=== PATIENT | female | born 1990 | race Caucasian/White ===

== ENCOUNTER 2019-10-25 16:59 | Outpatient (CLI) | payer OTHER, SELFPAY | END 2019-10-25 17:00 | disposition home or self-care (01) | LOC: CHSLAB 17:03 | PROVIDERS: PCP Family Medicine; Visit Provider Specialist | DX: D18.01 Hemangioma of skin and subcutaneous tissue (principal); D18.1 Lymphangioma, any site | CPT/HCPCS: 88305 ==

== ENCOUNTER 2019-12-07 06:52 | Outpatient (CLI) | payer OTHER, SELFPAY ==
[2019-12-07 07:17] LABS: Basophils Absolute Auto 0.03 K/mm3 (0.00-0.10); Basophils Percent Auto 0.5 % (0.0-1.0); Eosinophils Absolute Auto 0.07 K/mm3 (0.02-0.50); Eosinophils Percent Auto 1.3 % (1.0-6.0); Hematocrit 40.9 % (35.0-49.0); Hemoglobin 13.7 g/dL (12.0-15.0); Immature Granulocyte Absolute 0.01 K/mm3 (0.00-0.00); Immature Granulocyte Percent A 0.2 % (0.0-0.0); Lymphocytes Percent Auto 34.6 % (18.0-42.0); Mean Corpuscular HGB Conc 33.5 g/dL (32.0-36.0); Mean Corpuscular Hemoglobin 32.1 pg (27.0-31.0); Mean Corpuscular Volume 95.8 fL (78.0-102.0); Mean Platelet Volume 8.9 fl (9.2-11.8); Monocytes Absolute Auto 0.44 K/mm3 (0.10-0.90); Neutrophils Percent Auto 55.4 % (50.0-70.0); Platelet Count Result 374 K/mm3 (150-420); Red Blood Count 4.27 M/mm3 (4.20-5.40); Red Cell Distribution Width 12.5 % (11.6-14.4); White Blood Count 5.5 K/mm3 (4.8-10.8)
[2019-12-07 08:08] LABS: Cholesterol 142 mg/dL (0-200); Free T4 Free Thyroxine 0.96 ng/dL (0.76-1.46); HDL Direct 53 mg/dL (40-60); LDL Cholesterol Calculated 74 mg/dL (<130); Thyroid Stimulating Hormone 2.49 uIU/mL (0.36-3.74); Triglycerides 73 mg/dL (0-150)
[2019-12-10 21:35] LABS: Vitamin D 1,25 (OH)2 Total 50 pg/mL (18-72); Vitamin D2 1,25 (OH)2 <8 pg/mL; Vitamin D3 1,25 (OH)2 50 pg/mL
[2019-12-13 10:30] LABS: Vitamin D 25 Hydroxy 37 ng/mL (30-100)
== END 2019-12-07 06:53 | disposition home or self-care (01) ==
PROVIDERS: PCP Family Medicine; Visit Provider Nurse Practitioner Psychiatric/Mental Health
DX: E55.9 Vitamin D deficiency, unspecified (principal); E03.9 Hypothyroidism, unspecified; D69.6 Thrombocytopenia, unspecified
CPT/HCPCS: 36415; 80061; 82306; 82652; 84439; 84443; 85025

== ENCOUNTER 2020-03-12 09:48 | Emergency (ER) | payer OTHER, SELFPAY ==
[2020-03-12 09:55] VITALS: BP 122/74; PULSE 100; RESP 16; TEMP 37.3; O2SAT 97
--- NOTE | 2020-03-12 10:16 | ED.URI ---
HPI - URI/Sore Throat General Chief Complaint: Upper Respiratory Infection Stated Complaint: Sore throat fever Time Seen by Provider: 03/12/20 10:17 History of Present Illness HPI Narrative: 22-year-old female patient is here with chief complaints of sore throat and fever that started 2 days ago. The patient states that she attended a bachelor green party when the written other people and nobody was wearing a mask however she states maintain a social distance but also that they were drinking. She is not aware of anyone else being sick or anyone else having had a contact. Patient does complain of feeling weak and states has not been able to eat or drink anything. She denies any unusual cough. She denies any abdominal pain. She denies any nausea or vomiting or any urinary symptoms. Patient states that she has not lost hers sense of taste or smell. She denies any cough and also any shortness of breath. Patient states that she is generally in good health. Related Data Home Medications Medication Instructions Recorded Confirmed levothyroxine 50 mcg PO DAILY 03/12/20 03/12/20 Allergies Allergy/AdvReac Type Severity Reaction Status Date / Time morphine Allergy Intermediate HIVES,ITCHI Verified 07/30/18 14:35 NG Review of Systems Review of Systems: All systems reviewed & are unremarkable except as noted in HPI and below Constitutional: Constitutional: Reports no additional constitutional complaints, Denies chills, Reports fatigue, Reports fever(s) and Reports weakness Eyes: Eyes: Reports no additional eye complaints ENT: Reports system reviewed and no additional complaints, except as documented, Denies dysphagia and Denies nasal congestion Cardiovascular: Cardiovascular: Reports no additional cardiovascular complaints and Denies chest pain Respiratory: Respiratory: Reports no additional respiratory complaints, Denies cough, Denies dyspnea and Denies wheezing Gastrointestinal: Gastrointestinal: Reports no additional gastrointestinal complaints, Denies abdominal pain, Denies diarrhea, Denies nausea and Denies vomiting Musculoskeletal: Musculoskeletal: Reports no additional musculoskeletal complaints Integumentary/Breasts: Skin/Breast: Reports system reviewed and no additional complaints, except as docu Neurologic: Reports system reviewed and no additional complaints, except as documented Psychiatric: Psychiatric: Reports no additional psychiatric complaints [facility] Family History Family History Father Diabetes mellitus Family history of hypercholesterolemia Hypertension Sibling Family history of malignant melanoma Social History Social History Smoking status: Never smoker Alcohol intake: current Exam Const: General: no acute distress and alert Orientation/consciousness: patient oriented x3 HENMT: Head: normal to inspection Ears: external ears normal General nose exam: Normal nares present Face and sinus: sinuses nontender Mouth: Yes Normal oral and palatal mucosa present Throat: posterior oropharynx abnormal Other: Patient has erythema of the posterior pharyngeal wall with the slight enlargement of the tonsils with exudates. No bleeding . Uvula is midline Chest: Chest palpation & inspection: normal inspection of the chest Resp: Effort & Inspection: normal respiratory effort Auscultation: clear to auscultation bilaterally Cardio: Rate: regular rate GI: GI Palp: Yes Soft to palpation, No Tenderness to palpation present (GI), No Guarding due to palpation present (GI), No Rigid due to palpation, No Hernia present and No Rebound tenderness present Auscultation: normal bowel sounds : General: Yes no CVA tenderness Back/Spine/Pelvis: Back: No CVA tenderness Cervical Spine: No collar present Neuro: General: patient oriented x3, moves all extremities, no meningeal signs, no focal motor deficits and CN's II-XI intact bilaterally Gait exam
[2020-03-12] MEDS: LACTATED RINGERS 1,000 ML 999 ML IV CONT (11:18)
[2020-03-12] MEDS: KETOROLAC 30 MG/ML VIAL (*BKC) IV PUSH (11:19)
[2020-03-12] MEDS: DEXAMETHASONE SOD PHOS INJ 4 MG/ML VIAL 10 MG IV PUSH (11:20)
[2020-03-12 11:24] LABS: Influenza Control Valid (Valid)
[2020-03-12 12:41] LABS: Basophils Absolute Auto 0.02 K/mm3 (0.00-0.10); Basophils Percent Auto 0.2 % (0.0-1.0); Hematocrit 36.3 % (35.0-49.0); Hemoglobin 12.2 g/dL (12.0-15.0); Immature Granulocyte Absolute 0.12 K/mm3 (0.00-0.00); Lymphocytes Absolute Auto 0.79 K/mm3 (1.10-4.50); Lymphocytes Percent Auto 6.9 % (18.0-42.0); Mean Corpuscular HGB Conc 33.6 g/dL (32.0-36.0); Mean Corpuscular Hemoglobin 32.6 pg (27.0-31.0); Mean Corpuscular Volume 97.1 fL (78.0-102.0); Mean Platelet Volume 8.7 fl (9.2-11.8); Monocytes Absolute Auto 0.69 K/mm3 (0.10-0.90); Neutrophils Absolute Auto 9.9 K/mm3 (1.7-7.2); Neutrophils Percent Auto 85.9 % (50.0-70.0); Platelet Count Result 239 K/mm3 (150-420); Red Blood Count 3.74 M/mm3 (4.20-5.40); White Blood Count 11.5 K/mm3 (4.8-10.8)
[2020-03-12 12:59] LABS: Lactic Acid 0.7 mmol/L (0.4-2.0)
[2020-03-12 13:03] LABS: Anion Gap 10 mmol/L (8-16); Blood Urea Nitrogen 10 mg/dL (7-18); Calcium 8.6 mg/dL (8.5-10.1); Carbon Dioxide 25 mmol/L (21-32); Chloride 103 mmol/L (98-108); Estimated CRCL calculation 98 ml/min; Estimated Glomerular Filt Rate > 60; Glucose 99 mg/dL (70-99); Osmolality Calculated 285 mOsm/kg (285-295); Potassium 3.7 mmol/L (3.5-5.1); Sodium 138 mmol/L (136-145)
[2020-03-12 14:06] LABS: Monoscreen Negative (Negative); Negative Monotest Control Negative (Negative); Positive Monotest Control Positive (Positive)
[2020-03-12] MEDS: AMOXICILLIN/CLAVULANATE K 875-125 MG TAB 1 TABLET PO (14:35)
[2020-03-12 14:44] VITALS: BP 125/74; PULSE 83; RESP 16; O2SAT 98
[2020-03-12 22:47] LABS: SARS-CoV-2 RNA PCR Negative
== END 2020-03-12 14:43 | disposition home or self-care (01) ==
PROVIDERS: Emergency Provider Emergency Medicine; PCP Family Medicine
DX: J02.9 Acute pharyngitis, unspecified (principal)
CPT/HCPCS: 36415; 80048; 83605; 85025; 86308; 87040; 87081; 87635; 87804; 87880; 96361; 96374; 96375; 99282; 99284; A9270; C9803; J1100; J1885; J7120; U0003

== ENCOUNTER 2020-12-06 08:07 | Outpatient (CLI) | payer OTHER, SELFPAY ==
[2020-12-06 08:21] LABS: Basophils Absolute Auto 0.03 K/mm3 (0.00-0.10); Basophils Percent Auto 0.6 % (0.0-1.0); Eosinophils Absolute Auto 0.05 K/mm3 (0.02-0.50); Hematocrit 36.3 % (35.0-49.0); Hemoglobin 12.2 g/dL (12.0-15.0); Immature Granulocyte Absolute 0.01 K/mm3 (0.00-0.00); Immature Granulocyte Percent A 0.2 % (0.0-0.0); Lymphocytes Absolute Auto 1.73 K/mm3 (1.10-4.50); Lymphocytes Percent Auto 34.2 % (18.0-42.0); Mean Corpuscular HGB Conc 33.6 g/dL (32.0-36.0); Mean Corpuscular Hemoglobin 31.2 pg (27.0-31.0); Mean Corpuscular Volume 92.8 fL (78.0-102.0); Mean Platelet Volume 8.8 fl (9.2-11.8); Monocytes Absolute Auto 0.44 K/mm3 (0.10-0.90); Monocytes Percent Auto 8.7 % (2.0-11.0); Neutrophils Absolute Auto 2.8 K/mm3 (1.7-7.2); Neutrophils Percent Auto 55.3 % (50.0-70.0); Platelet Count Result 337 K/mm3 (150-420); Red Blood Count 3.91 M/mm3 (4.20-5.40); Red Cell Distribution Width 12.4 % (11.6-14.4); White Blood Count 5.1 K/mm3 (4.8-10.8)
[2020-12-06 09:47] LABS: Alanine Aminotransferase 25 U/L (14-59); Albumin Level 3.8 g/dL (3.4-5.0); Alkaline Phosphatase 59 U/L (46-116); Anion Gap 8 mmol/L (8-16); Aspartate Amino Transferase 13 U/L (15-37); Bilirubin,Total 0.4 mg/dL (0.00-1.00); Blood Urea Nitrogen 14 mg/dL (7-18); Carbon Dioxide 26 mmol/L (21-32); Chloride 103 mmol/L (98-108); Cholesterol 128 mg/dL (0-200); Estimated Glomerular Filt Rate > 60; Free T3 2.53 pg/mL (2.18-3.98); Glucose 88 mg/dL (70-99); HDL Direct 58 mg/dL (40-60); LDL Cholesterol Calculated 60 mg/dL (<130); Osmolality Calculated 283 mOsm/kg (285-295); Potassium 4.5 mmol/L (3.5-5.1); Sodium 137 mmol/L (136-145); Thyroid Stimulating Hormone 1.98 uIU/mL (0.36-3.74); Total Protein 7.3 g/dL (6.4-8.2); Triglycerides 51 mg/dL (0-150); Vitamin B12 438 pg/mL (193-986)
[2020-12-08 20:01] LABS: T4 Thyroxine 6.5 mcg/dL (5.1-11.9)
[2020-12-09 03:48] LABS: Thyroid Peroxidase Antibodies 3 IU/mL (<9)
[2020-12-09 16:25] LABS: Vitamin D 25 Hydroxy 30 ng/mL (30-100)
[2020-12-11 12:07] LABS: Vitamin D 1,25 (OH)2 Total 55 pg/mL (18-72); Vitamin D2 1,25 (OH)2 9 pg/mL; Vitamin D3 1,25 (OH)2 46 pg/mL
== END 2020-12-06 08:08 | disposition home or self-care (01) ==
PROVIDERS: PCP Family Medicine; Visit Provider Nurse Practitioner Psychiatric/Mental Health
DX: R53.83 Other fatigue (principal); R79.9 Abnormal finding of blood chemistry, unspecified; R63.5 Abnormal weight gain
CPT/HCPCS: 36415; 80053; 80061; 82306; 82607; 82652; 84436; 84443; 84481; 85025; 86376

== ENCOUNTER 2021-01-24 13:27 | Outpatient (CLI) | payer OTHER, SELFPAY ==
--- NOTE | ~2021-01-24 | XR_ITS ---
XR tibia fibula LT 2V DATE: 01/24/2021 13:47 INDICATION: Leg pain for 3 weeks TECHNIQUE: AP and lateral views COMPARISON: 10/03/2009 left knee FINDINGS: There is suggestion of partially imaged suprapatellar knee joint effusion on the lateral vi ew. No fracture or dislocation, periosteal reaction or bone destruction of the tibia or fibula is detecte d. Normal alignment at the knee and ankle joints. IMPRESSION: Suggested suprapatellar knee joint effusion Reviewed, dictated and finalized at location A.
== END 2021-01-24 13:28 | disposition home or self-care (01) ==
LOC: CHSIMG 13:30
PROVIDERS: PCP Family Medicine; Visit Provider Nurse Practitioner Psychiatric/Mental Health
DX: M79.662 Pain in left lower leg (principal)
CPT/HCPCS: 73590

== ENCOUNTER 2021-10-01 14:12 | Outpatient (CLI) | payer OTHER, SELFPAY ==
--- NOTE | ~2021-10-01 | XR_ITS ---
XR heel RT min 2V DATE: 10/01/2021 14:49 INDICATION: Plantar heel pain TECHNIQUE: Axial and lateral views COMPARISON: None FINDINGS: Prominent plantar calcaneal enthesopathy, increased in prominence substantially since 07/01. No associated periostitis or erosive change. No fracture or dislocation or bone destruction of the calcaneus. IMPRESSION: Prominent plantar calcaneal enthesopathy Reviewed, dictated and finalized at location A.
== END 2021-10-01 14:13 | disposition home or self-care (01) ==
LOC: CHSIMG 14:13
PROVIDERS: PCP Nurse Practitioner Psychiatric/Mental Health; Visit Provider Nurse Practitioner Psychiatric/Mental Health
DX: M79.671 Pain in right foot (principal)
CPT/HCPCS: 73650

== ENCOUNTER 2022-05-08 06:55 | Outpatient (CLI) | payer OTHER, SELFPAY ==
--- NOTE | ~2022-05-08 | MR_ITS ---
EXAMINATION: MR foot RT wo con DATE: 05/08/2022 08:00 INDICATION: Arthralgias in the right mid and forefoot TECHNIQUE: Magnetic resonance imaging (MRI) of the right fore/mid foot was performed without intraven ous contrast. Sequences included sagittal T1-weighted FSE, sagittal fluid sensitive FSE STIR, coronal PD-weighted FS FSE, coronal T1-weighted FSE, axial PD-weighted FS FSE, and axial PD-weighted FSE. 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 Bone alignment is normal. No rmal bone marrow signal throughout with no reactive edema, acute fracture or pathologic marrow replac ing process. Joint spaces are normal. No erosions. No periostitis. There is a 1.4 x 2.0 x 0.5 cm peter ral masses intermediate signal intensity tissue partially replacing the plantar fat pad underlying th e plantar/lateral aspect of the head of the fifth metatarsal with typical location and appearance for adventitial bursitis. The Lisfranc ligament complex and the collateral ligament complex at the metat arsophalangeal and interphalangeal joints are normal. The flexor and extensor tendons of the foot are normal. The plantar plate complex at the base of the proximal phalanges are normal. Intrinsic muscul ature of the foot is normal. Physiologic amount of fluid in the joint spaces. No other abnormal fluid collections identified. IMPRESSION: 1. Adventitial bursitis plantar to the head of the fifth metatarsal. 2. 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 Reviewed, dictated and finalized at location A.
== END 2022-05-08 06:56 | disposition home or self-care (01) ==
LOC: CHSIMG 06:57
PROVIDERS: PCP Family Medicine; Visit Provider Podiatrist Foot & Ankle Surgery
DX: M25.571 Pain in right ankle and joints of right foot (principal); M76.71 Peroneal tendinitis, right leg
CPT/HCPCS: 73718

== ENCOUNTER 2022-07-04 07:08 | Outpatient (CLI) | payer OTHER, SELFPAY ==
[2022-07-04 07:33] LABS: Hemoglobin A1C 5.2 % (<5.7)
[2022-07-04 08:25] LABS: Alanine Aminotransferase 26 U/L (14-59); Albumin Level 3.8 g/dL (3.4-5.0); Alkaline Phosphatase 63 U/L (46-116); Anion Gap 8 mmol/L (8-16); Aspartate Amino Transferase 15 U/L (15-37); Bilirubin,Total 0.5 mg/dL (0.00-1.00); Blood Urea Nitrogen 21 mg/dL (7-18); Carbon Dioxide 25 mmol/L (21-32); Chloride 104 mmol/L (98-108); Estimated Glomerular Filt Rate > 60; Glucose 90 mg/dL (70-99); Osmolality Calculated 287 mOsm/kg (285-295); Potassium 4.2 mmol/L (3.5-5.1); Sodium 137 mmol/L (136-145); Thyroid Stimulating Hormone 3.24 uIU/mL (0.36-3.74); Total Protein 7.5 g/dL (6.4-8.2)
[2022-07-08 13:55] LABS: Insulin Level Total 12.2 uIU/mL (<=19.6)
[2022-07-08 21:04] LABS: T4 Thyroxine 7.3 mcg/dL (5.9-10.3)
[2022-07-09 07:51] LABS: FSH 5.6 mIU/mL (***); LH 9.1 mIU/mL (***); Progesterone 0.3 ng/mL (***); Prolactin 11.3 ng/mL (***)
[2022-07-09 10:52] LABS: Testosterone Total 44 ng/dL (2-45)
== END 2022-07-04 07:09 | disposition home or self-care (01) ==
LOC: CHSLAB 07:09
PROVIDERS: Visit Provider Obstetrics & Gynecology
DX: N92.6 Irregular menstruation, unspecified (principal); N97.0 Female infertility associated with anovulation
CPT/HCPCS: 36415; 80053; 83001; 83002; 83036; 83498; 83525; 84144; 84146; 84403; 84436; 84443

== ENCOUNTER 2022-09-11 06:42 | Outpatient (CLI) | payer OTHER, SELFPAY ==
--- NOTE | ~2022-09-11 | XR_ITS ---
EXAMINATION: XR hysterosalpingogram DATE: 09/11/2022 08:37 INDICATION: Irregular menstruation TECHNIQUE: Multiple fluoroscopic images were obtained during contrast infusion into the endometrial c anal of the uterus by the primary physician. Fluoroscopy exposure time was 0.3 minutes. A total of 3 fluoroscopic images were recorded. Total DAP was 4.524 Gycm^2 FINDINGS: The uterine cavity demonstrates normal morphology. The fallopian tubes are normal in caliber and pat ent bilaterally. There is normal spillage of contrast into the peritoneum on both sides. IMPRESSION: 1. Normal hysterosalpingogram. Reviewed, dictated and finalized at location A. 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
[2022-09-11 07:36] LABS: Beta HCG Quantitative < 2.39 mIU/ML
--- NOTE | 2022-09-16 17:48 | PM.OP ---
Procedure Note - Brief Procedure Note - Brief Date of procedure: 09/16/22 Pre-op diagnosis: infirtility Same Post-op diagnosis: Same Procedure performed: technical hysterosalpingogram component Description of procedure: after informed consent was obtained patient was placed on the [facility] procedure table. She was placed in modified lithotomy position. The speculum was inserted the cervix was cleaned with Betadine. The cannula and introducer was placed at the cervix the cannula was inserted into the lower uterine cavity and the balloon was secured. once radiology was present and fluoro was initiated then the dye was inserted through the tubing and there was noted to be bilateral fill and spill. A total of about 40 cc of dye was used. The tubing was removed after the balloon was deflated the speculum was removed. The patient tolerated the procedure well. Anesthesia: none Surgeon: Vlad Bui MD Drains: No Packing: No Pathology: None sent Complications: No immediate complications Condition: Stable Disposition: Other ( Home) Findings: bilateral fill and Spill of fallopian tubes.
== END 2022-09-11 06:43 | disposition home or self-care (01) ==
LOC: ANHIMG 06:44
PROVIDERS: Visit Provider Obstetrics & Gynecology
DX: N92.6 Irregular menstruation, unspecified (principal)
CPT/HCPCS: 36415; 58340; 74740; 84702; Q9966

== ENCOUNTER → 2022-10-21 08:06 | Outpatient (CLI) | payer OTHER, SELFPAY ==
--- NOTE | ~2022-10-21 | US_ITS ---
EXAMINATION: US OB <=14 wk fetus w TV DATE: 10/21/2022 08:47 INDICATION: First trimester dating TECHNIQUE: Real-time pelvic transabdominal and transvaginal ultrasound was performed. COMPARISON: None. FINDINGS: The uterus measures 9.1 x 3.9 x 5.2 cm. There is an intrauterine gestational sac. The pole is not identified. The mean sac diameter measures 6 mm, which correlates with an estimated gest ational age of 5 weeks and 2 day(s) (+/-) 3 day(s). The right ovary measures 3.5 x 2.3 x 1.9 cm. The left ovary measures 2.8 x 1.7 x 1.6 cm. There is nor mal vascular flow in the ovaries. There is no free fluid in the pelvis. IMPRESSION: 1. Intrauterine gestational sac without visible pole, likely due to early . Estimated gestational age of 5 weeks and 2 day(s) (+/-) 3 day(s) and an estimated delivery date of 06/21/2023 ba sed on mean sac diameter. Reviewed, dictated and finalized at location L. IMPRESSION: 1. Intrauterine gestational sac without visible pole, likely due to early . Estimated gestational age of 5 weeks and 2 day(s) (+/-) 3 day(s) an d an estimated delivery date of 06/21/2023 based on mean sac diameter.
== END ==
PROVIDERS: PCP Registered Nurse; Visit Provider Registered Nurse
DX: Z34.90 Encounter for supervision of normal pregnancy, unspecified, unspecified trimester (principal)
CPT/HCPCS: 76801; 76817

== ENCOUNTER 2022-10-31 07:21 | Outpatient (CLI) | payer OTHER, SELFPAY ==
--- NOTE | ~2022-10-31 | US_ITS ---
EXAMINATION: US OB <=14 wk fetus w TV DATE: 10/31/2022 08:10 INDICATION: Evaluate for intrauterine TECHNIQUE: Real-time transabdominal and transvaginal obstetric ultrasound. FINDINGS: Comparison to 10/21/2022 The uterus measures 9.9 x 4 x 5.3 cm. There is an intrauterine gestational sac, with pole ident ified. The crown rump length measures 0.35 cm, which correlates with a estimated gestational age of 6 weeks 0 days. heart tones are identified measuring 06/10/2023. There is a small subchorioni c hemorrhage measuring 4 mm. The ovaries are within normal limits. IMPRESSION: 1. SL IUP with an EGA of 6 weeks, 0 days (EDC by current ultrasound of 06/26/2023). 2: Small subchorionic hemorrhage. Reviewed, dictated and finalized at location B. IMPRESSION: 1. SL IUP with an EGA of 6 weeks, 0 days (EDC by current ultrasound of 06/26/20). 2: Small subchorionic hemorrhage.
== END 2022-10-31 07:22 | disposition home or self-care (01) ==
PROVIDERS: Visit Provider Registered Nurse
DX: O28.3 Abnormal ultrasonic finding on antenatal screening of mother (principal); Z3A.01 Less than 8 weeks gestation of pregnancy
CPT/HCPCS: 76801; 76817

== ENCOUNTER 2022-11-19 11:02 | Outpatient (CLI) | payer OTHER, SELFPAY ==
--- NOTE | ~2022-11-19 | US_ITS ---
EXAMINATION: US OB <=14 wk fetus w TV DATE: 11/19/2022 11:57 INDICATION: Hemorrhage in early , unspecified. TECHNIQUE: Real-time transabdominal and transvaginal pelvic ultrasound was performed. COMPARISON: Ultrasound 10/31/2022, 10/21/2022 FINDINGS: TRANSABDOMINAL ULTRASOUND: The uterus measures 11.0 x 7.1 x 5.2 cm. TRANSVAGINAL ULTRASOUND: There is an intrauterine gestational sac. A yolk sac is identified. The fet al crown rump length measures 2.5 cm, which correlates with an estimated gestational age of 9 weeks a nd 2 day(s) (+/-) 6 day(s). heart motion is identified measuring 173 beats per minute (bpm) by M-mode Doppler. There is a 3.3 cm intramural fibroid. There is a 9 x 10 x 6 mm subchorionic hematoma. The right ovary measures 3.6 x 2.6 x 3.5 cm. The left ovary measures 3.1 x 2.2 x 2.0 cm. There is no free fluid in the pelvis. IMPRESSION: 1. Single living intrauterine gestation with estimated date of delivery of 06/26/2023 based on the ul trasound from 10/31/2022. 2. Small subchorionic hematoma. 3. Uterine fibroid. Reviewed, dictated and finalized at location A. IMPRESSION: 1. Single living intrauterine gestation with estimated date of delivery of 06/26/2023 based on the ultrasound from 10/31/2022. 2. Small subchorionic hematoma. 3. Uterine fibroid.
== END 2022-11-19 11:03 | disposition home or self-care (01) ==
PROVIDERS: PCP Family Medicine; Visit Provider Obstetrics & Gynecology
DX: O20.9 Hemorrhage in early pregnancy, unspecified (principal); O36.8911 Maternal care for other specified fetal problems, first trimester, fetus 1; D25.9 Leiomyoma of uterus, unspecified
CPT/HCPCS: 76801; 76817

== ENCOUNTER 2022-12-09 07:37 | Outpatient (CLI) | payer OTHER, SELFPAY ==
[2022-12-09 08:03] LABS: Appearance Urine Clear (Clear); Basophils Absolute Auto 0.03 K/mm3 (0.00-0.10); Basophils Percent Auto 0.4 % (0.0-1.0); Bilirubin Urine Negative (Negative); Blood Urine Negative (Negative); Color Urine Light Yellow (Yellow); Eosinophils Absolute Auto 0.08 K/mm3 (0.02-0.50); Eosinophils Percent Auto 1.1 % (1.0-6.0); Glucose Urine UA Negative (Negative); Hematocrit 38.7 % (35.0-49.0); Immature Granulocyte Absolute 0.03 K/mm3 (0.00-0.00); Immature Granulocyte Percent A 0.4 % (0.0-0.0); Ketones Urine Negative (Negative); Leukocyte Esterase Ur Trace (Negative); Lymphocytes Percent Auto 23.3 % (18.0-42.0); Mean Corpuscular HGB Conc 33.6 g/dL (32.0-36.0); Mean Corpuscular Hemoglobin 30.5 pg (27.0-31.0); Mean Corpuscular Volume 90.8 fL (78.0-102.0); Mean Platelet Volume 8.7 fl (9.2-11.8); Monocytes Absolute Auto 0.53 K/mm3 (0.10-0.90); Monocytes Percent Auto 7.3 % (2.0-11.0); Neutrophils Absolute Auto 4.9 K/mm3 (1.7-7.2); Neutrophils Percent Auto 67.5 % (50.0-70.0); Nitrate Urine Negative (Negative); Platelet Count Result 334 K/mm3 (150-420); Protein Urine Negative (Negative); Red Blood Count 4.26 M/mm3 (4.20-5.40); Red Cell Distribution Width 13.2 % (11.6-14.4); Urobilinogen Urine 0.2 mg/dL (0.2-1.0); White Blood Count 7.3 K/mm3 (4.8-10.8); pH Urine 7.5 (5.0-8.0)
[2022-12-09 08:10] LABS: Add Urine Microscopic? YES; Bacteria Urine Trace /hpf; RBC Urine None seen /hpf (0-2); Squamous Epithelial Cell Urine Occasional /hpf (Few); WBC Urine 0-3 /hpf (0-3)
[2022-12-09 08:30] LABS: HIV 1 P24 AG Negative (Negative); HIV 1/2 AB Negative (Negative)
[2022-12-13 11:02] LABS: Rubella IgG Antibody 1.24 Index
[2022-12-13 15:51] LABS: RPR Screen Non-Reactive (Non-Reactive)
[2022-12-15 00:07] LABS: Hepatitis B Surface Antigen Nonreactive (Nonreactive); Hepatitis C Signal to Cutoff 0.02 ratio (<1.00); Hepatitis C Virus Antibody Nonreactive (Nonreactive)
[2022-12-15 16:57] LABS: Vitamin D 25 Hydroxy 31 ng/mL (30-100)
[2022-12-16 16:36] LABS: Hematocrit 41.5 % (35.0-45.0); Hemoglobin 13.4 g/dL (11.7-15.5); MCH 30.6 pg (27.0-33.0); MCV 94.7 fL (80.0-100.0); Red Blood Cell Count 4.38 Mill/uL (3.80-5.10)
[2022-12-21 23:33] LABS: CF Result NEGATIVE (NEGATIVE); Ethnicity NG
== END 2022-12-09 07:38 | disposition home or self-care (01) ==
LOC: CHSLAB 07:39
PROVIDERS: PCP Family Medicine; Visit Provider Obstetrics & Gynecology
DX: Z34.90 Encounter for supervision of normal pregnancy, unspecified, unspecified trimester (principal)
CPT/HCPCS: 36415; 81001; 81220; 81243; 82306; 83021; 84443; 85025; 86592; 86703; 86762; 86787; 86803; 86850; 86900; 86901; 87086; 87340

== ENCOUNTER 2023-04-07 10:50 | Outpatient (CLI) | payer OTHER, SELFPAY ==
[2023-04-07 12:02] LABS: Basophils Absolute Auto 0.04 K/mm3 (0.00-0.10); Basophils Percent Auto 0.4 % (0.0-1.0); Eosinophils Absolute Auto 0.35 K/mm3 (0.02-0.50); Eosinophils Percent Auto 3.2 % (1.0-6.0); Hematocrit 32.8 % (35.0-49.0); Hemoglobin 11.1 g/dL (12.0-15.0); Immature Granulocyte Absolute 0.07 K/mm3 (0.00-0.00); Immature Granulocyte Percent A 0.6 % (0.0-0.0); Lymphocytes Absolute Auto 1.71 K/mm3 (1.10-4.50); Lymphocytes Percent Auto 15.9 % (18.0-42.0); Mean Corpuscular HGB Conc 33.8 g/dL (32.0-36.0); Mean Corpuscular Hemoglobin 32.5 pg (27.0-31.0); Mean Corpuscular Volume 95.9 fL (78.0-102.0); Mean Platelet Volume 9.2 fl (9.2-11.8); Monocytes Absolute Auto 0.72 K/mm3 (0.10-0.90); Monocytes Percent Auto 6.7 % (2.0-11.0); Neutrophils Absolute Auto 7.9 K/mm3 (1.7-7.2); Neutrophils Percent Auto 73.2 % (50.0-70.0); Platelet Count Result 283 K/mm3 (150-420); Red Blood Count 3.42 M/mm3 (4.20-5.40); Red Cell Distribution Width 13.3 % (11.6-14.4); White Blood Count 10.8 K/mm3 (4.8-10.8)
[2023-04-07 13:05] LABS: Glucose 1 Hour PP 50gm Dose 106 mg/dL (70-130)
== END 2023-04-07 10:51 | disposition home or self-care (01) ==
LOC: CHSLAB 10:52
PROVIDERS: PCP Family Medicine; Visit Provider Registered Nurse
DX: Z34.90 Encounter for supervision of normal pregnancy, unspecified, unspecified trimester (principal)
CPT/HCPCS: 36415; 82947; 85025

== ENCOUNTER 2023-05-04 14:24 | Outpatient (CLI) | payer OTHER, SELFPAY ==
[2023-05-04 14:36] LABS: Basophils Absolute Auto 0.04 K/mm3 (0.00-0.10); Basophils Percent Auto 0.4 % (0.0-1.0); Eosinophils Absolute Auto 0.16 K/mm3 (0.02-0.50); Eosinophils Percent Auto 1.7 % (1.0-6.0); Hematocrit 31.8 % (35.0-49.0); Hemoglobin 10.7 g/dL (12.0-15.0); Immature Granulocyte Absolute 0.08 K/mm3 (0.00-0.00); Immature Granulocyte Percent A 0.8 % (0.0-0.0); Lymphocytes Absolute Auto 1.68 K/mm3 (1.10-4.50); Lymphocytes Percent Auto 17.6 % (18.0-42.0); Mean Corpuscular HGB Conc 33.6 g/dL (32.0-36.0); Mean Corpuscular Hemoglobin 31.9 pg (27.0-31.0); Mean Corpuscular Volume 94.9 fL (78.0-102.0); Monocytes Absolute Auto 0.91 K/mm3 (0.10-0.90); Monocytes Percent Auto 9.5 % (2.0-11.0); Neutrophils Absolute Auto 6.7 K/mm3 (1.7-7.2); Platelet Count Result 264 K/mm3 (150-420); Red Blood Count 3.35 M/mm3 (4.20-5.40); Red Cell Distribution Width 13.4 % (11.6-14.4); White Blood Count 9.5 K/mm3 (4.8-10.8)
[2023-05-04 15:26] LABS: HIV 1 P24 AG Negative (Negative); HIV 1/2 AB Negative (Negative)
[2023-05-06 14:31] LABS: RPR Screen Non-Reactive (Non-Reactive)
== END 2023-05-04 14:25 | disposition home or self-care (01) ==
LOC: CHSLAB 14:26
PROVIDERS: PCP Family Medicine; Visit Provider Obstetrics & Gynecology
DX: Z34.93 Encounter for supervision of normal pregnancy, unspecified, third trimester (principal)
CPT/HCPCS: 36415; 85025; 86592; 87806

== ENCOUNTER 2023-06-19 13:27 | Outpatient (RCR) | payer OTHER, SELFPAY ==
[2023-05-01 16:03] VITALS: BP 126/75; PULSE 87
[2023-05-08 16:00] VITALS: BP 126/75; PULSE 87
[2023-05-15 16:16] VITALS: BP 129/76; PULSE 85
[2023-05-22 15:00] VITALS: BP 127/75; PULSE 89
[2023-05-22 15:15] VITALS: BP 123/75; PULSE 88
[2023-05-22 15:30] VITALS: BP 117/75; PULSE 93
[2023-05-22 16:47] VITALS: BP 117/75; PULSE 86
[2023-05-29 16:47] VITALS: BP 133/84; PULSE 75
[2023-06-03 07:54] VITALS: BP 127/73; PULSE 96
[2023-06-05 15:19] VITALS: BP 123/71; PULSE 92
[2023-06-08 16:27] VITALS: BP 117/71; PULSE 92
[2023-06-12 15:45] VITALS: BP 135/85; PULSE 89
[2023-06-17 17:43] VITALS: BP 132/77; PULSE 85
--- NOTE | ~2023-06-19 | US_ITS ---
EXAMINATION: US OB limited DATE: 05/29/2023 16:24 INDICATION: Amniotic fluid index. Third trimester. TECHNIQUE: Real-time ultrasound of the pelvis was performed. COMPARISON: Ultrasound 05/22/2023 FINDINGS: There is a single fetus in vertex presentation. The placenta is fundal. heart rate is 127 beat s per minute (bpm). The amniotic fluid index is 10.5 cm, which is normal. IMPRESSION: 1. Single living fetus in vertex presentation. 2. Normal amniotic fluid index. Reviewed, dictated and finalized at location E. SERVER
--- NOTE | ~2023-06-19 | US_ITS ---
EXAMINATION: US OB BPP wo non-stress DATE: 06/08/2023 16:32 INDICATION: Large for gestational age during third trimester TECHNIQUE: Real-time pelvic ultrasound was performed. The interpreting radiologist was not present fo r the study. COMPARISON: 06/03/2023 FINDINGS: There is a single living fetus in vertex presentation. The placenta is anterior fundal. heart rate is 140 beats per minute (bpm). Amniotic fluid volume is subjectively normal. Biophysical profile performed by the technologist: breathing (30 sec sustained breathing in 30 minutes): 2 out of 2 movement (3 gross body movements in 30 minutes): 2 out of 2 tone (one episode of boqytpj-mtilbzpsa-lidodhy limb movement): 2 out of 2 Amniotic fluid pocket (2 cm): 2 out of 2 Total score: 8 out of 8 IMPRESSION: 1. Single living fetus in vertex presentation with heart rate of 140 bpm. 2. Biophysical profile 8 out of 8. Reviewed, dictated and finalized at location A.
--- NOTE | ~2023-06-19 | US_ITS ---
EXAMINATION: US OB limited DATE: 05/15/2023 15:46 INDICATION: Large for gestational age during third trimester . Assess amniotic fluid index TECHNIQUE: Real-time ultrasound of the pelvis was performed. The interpreting radiologist was not pre sent for the study. COMPARISON: None. FINDINGS: There is a single living fetus in vertex presentation. The placenta is fundal. heart rate is 1 44 beats per minute (bpm). The amniotic fluid index is 11.4 cm, which is normal (5th%-95%: 8.1-44.8 c m at 34 weeks estimated gestational age). IMPRESSION: 1. Single living fetus in vertex presentation with heart rate of 144 bpm. 2. Normal amniotic fluid index of 11.4 cm. Reviewed, dictated and finalized at location A. IMPRESSION: 1. Single living fetus in vertex presentation with heart rate of 144 bpm . 2. Normal amniotic fluid index of 11.4 cm.
--- NOTE | ~2023-06-19 | US_ITS ---
EXAMINATION: US OB limited DATE: 05/08/2023 15:51 INDICATION: Amniotic fluid index assessment, large for gestational age, third trimester TECHNIQUE: Real-time ultrasound of the pelvis was performed. The interpreting radiologist was not pre sent for the study. COMPARISON: 05/01/2023 FINDINGS: There is a single living fetus in vertex presentation. The placenta is fundal. cardia c activity and movement are noted. heart rate is 158 beats per minute (bpm). The amniotic fluid index is 10.3 cm which is normal (normal range: 8.3 cm to 21.5 cm). IMPRESSION: 1. Single living fetus in vertex presentation. 2. Normal amniotic fluid index. Reviewed, dictated and finalized at location F.
--- NOTE | ~2023-06-19 | US_ITS ---
EXAMINATION: US OB BPP wo non-stress DATE: 06/03/2023 08:02 INDICATION: Large for gestational age. Third trimester. TECHNIQUE: Real-time pelvic ultrasound was performed. COMPARISON: Ultrasound 05/29/2023 FINDINGS: There is a single living fetus in vertex presentation. The placenta is fundal. heart rate is 1 48 beats per minute (bpm). Biophysical profile performed by the technologist: breathing (30 sec sustained breathing in 30 minutes): 2 out of 2 movement (3 gross body movements in 30 minutes): 2 out of 2 tone (one episode of fkeldot-fdjbasddz-rcfrmoj limb movement): 2 out of 2 Amniotic fluid pocket (2 cm): 2 out of 2 Total score: 8 out of 8 IMPRESSION: 1. Single living fetus in vertex presentation. 2. Biophysical profile 8 out of 8. Reviewed, dictated and finalized at location A. 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
--- NOTE | ~2023-06-19 | US_ITS ---
EXAMINATION: US OB limited w BPP DATE: 06/17/2023 17:50 INDICATION: LGA . TECHNIQUE: Real-time ultrasound of the pelvis was performed. COMPARISON: 06/12/2023 FINDINGS: There is a single living fetus in cephalic presentation, longitudinal lie. The placenta is anterior, maternal right, well consistent from the cervix. heart rate is 142 bpm. The amniotic fluid ind ex is 8.9 cm, which is normal (5th to 95th percentile is 7.3 to 23.9 cm). Biophysical profile performed by the technologist: breathing (30 sec sustained breathing in 30 minutes): 2 out of 2. movement (3 gross body movements in 30 minutes: 2 out of 2. tone (one episode of hhmqfjj-sotzxzved-pquylat limb movement): 2 out of 2. Amniotic fluid pocket (2 cm): 2 out of 2. Total score: 8 out of 8. IMPRESSION: Single living fetus in vertex presentation. Biophysical profile 8 out of 8. Low-normal JULIA. Reviewed, dictated and finalized at location K. 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
--- NOTE | ~2023-06-19 | US_ITS ---
US OB limited DATE: 06/12/2023 15:45 INDICATION: JULIA measurement; large for gestational age TECHNIQUE: Real-time imaging for measurements of amniotic fluid index COMPARISON: None FINDINGS: Live wynn intrauterine gestation, fetus in longitudinal lie, vertex presentation. Fundal placenta. heart rate of 134 bpm. Amniotic fluid index measures 11.3 cm. (5th percentile JULIA: 7.3 cm; 95th percentile JULIA: 23.9 cm. IMPRESSION: Amniotic fluid index measures 1.3 cm Reviewed, dictated and finalized at Location A. Reviewed, dictated and finalized at location A. 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
--- NOTE | ~2023-06-19 | US_ITS ---
US OB limited 06/19/2023 15:44 Indication: Large for gestational age. Procedure: High-resolution Limited obstetrical ultrasound Comparison: 06/17/2023 Findings: There is a single living intrauterine in vertex presentation. heart rate is 153 BPM. Placenta is fundal without previa. JULIA is normal measuring 9.2 cm (normal range for gestati onal age of 7.2-22.6 cm). Impression: 1: Single living intrauterine in vertex presentation. 2: Normal JULIA measures 9.2 cm. Reviewed, dictated and finalized at location B. FITS ASSISTANT Impression: 1: Single living intrauterine in vertex presentation. 2: Normal JULIA measures 9.2 cm.
--- NOTE | ~2023-06-19 | US_ITS ---
US OB limited 05/22/2023 16:44 Indication: Large for gestational age. Evaluate amniotic fluid volume. Procedure: Real-time Limited obstetrical ultrasound Comparison: 05/15/2023 Findings: There is a single living intrauterine in vertex presentation. heart rate is 142 BPM. Placenta is fundal. JULIA is normal measuring 15 cm. Impression: 1: JULIA is normal measuring 15 cm. Reviewed, dictated and finalized at location A. Impression: 1: JULIA is normal measuring 15 cm.
--- NOTE | ~2023-06-19 | US_ITS ---
EXAMINATION: US OB limited DATE: 05/01/2023 16:48 INDICATION: Large for gestational age, third trimester TECHNIQUE: Real-time ultrasound of the pelvis was performed. The interpreting radiologist was not pre sent for the study. COMPARISON: None. FINDINGS: There is a single living fetus in vertex presentation. The placenta is fundal. cardia c activity and movement are noted. The measured cervical length is 7.0 cm. heart rate is 129 beats per minute (bpm). The amniotic fluid index is 11 cm which is normal (normal range: 8.6 cm t o 24.2 cm). IMPRESSION: 1. Single living fetus in vertex presentation. 2. Normal amniotic fluid index. Reviewed, dictated and finalized at location B.
[2023-06-19 14:42] VITALS: BP 114/68; PULSE 93
== END 2023-07-30 23:59 | disposition home or self-care (01) ==
LOC: ANHOBOP 13:27
PROVIDERS: PCP Family Medicine; Visit Provider Obstetrics & Gynecology
DX: O36.63X0 Maternal care for excessive fetal growth, third trimester, not applicable or unspecified (principal); Z3A.32 32 weeks gestation of pregnancy; Z3A.33 33 weeks gestation of pregnancy; Z3A.34 34 weeks gestation of pregnancy; Z3A.35 35 weeks gestation of pregnancy; Z3A.36 36 weeks gestation of pregnancy; Z3A.37 37 weeks gestation of pregnancy; Z3A.38 38 weeks gestation of pregnancy; Z3A.39 39 weeks gestation of pregnancy
CPT/HCPCS: 59025; 76815; 76819

== ENCOUNTER 2023-06-23 17:00 | Inpatient (IN) | payer OTHER, SELFPAY ==
[2023-06-23] VITALS (42 sets, daily range): BP systolic 121–164; BP diastolic 65–131; PULSE 66–104; TEMP 36.8; O2SAT 96–100; BMI 42.1
[2023-06-23] MEDS: LACTATED RINGERS 1,000 ML 125 ML IV CONT ×2 (17:47→22:53)
[2023-06-23] MEDS: OXYTOCIN 30 UNITS/NS 500 ML 30 UNITS/500 ML BAG IV CONT (17:48)
--- NOTE | 2023-06-23 17:51 | WPDANESEPP ---
Anes - Eval Pre Procedure Procedure: labor epidural Date/Time: 06/23/23 17:51 Surgeon: jennifer Preop Diagnosis: pain during labor Pre Op Diagnosis: Induction of Labor Patient Data Age: 33 Gender: F Height: Weight: Last Vital Signs Pulse 88 06/23/23 17:19 BP 139/77 06/23/23 17:19 Allergies Allergy/AdvReac Type Severity Reaction Status Date / Time morphine Allergy Intermediate HIVES,ITCHI Verified 06/23/23 17:49 NG Home Medications Medication Instructions Recorded Confirmed Type prenat.vits,teddy,sqb-fcla-iowiu 1 tablet PO DAILY 10/21/22 06/03/23 History ferrous sulfate 325 mg (65 mg 325 mg PO DAILY 05/20/23 06/03/23 History iron) tablet valacyclovir 1 gram tablet 1,000 mg PO .PRN #20 tabs 06/22/23 Rx Patient hx anesthesia problems: none Family hx anesthesia problems: none Results Review: All pre-operative results and documents have been reviewed as part of the pre-operative evaluation. [facility] Past Medical History Medical History Headache Morbid obesity Obesity, unspecified Surgical History Surgical History H/O elbow surgery History of dilation and curettage x 2 hemorrhage Family History Family History Father Diabetes mellitus Hypertension Melanoma Sibling Family history of malignant melanoma Sibling Melanoma Grandparent Acute leukemia Heart disease Mother No problems noted. 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
[2023-06-23 17:55] LABS: Basophils Percent Auto 0.3 % (0.2-1.2); Eosinophils Absolute Auto 0.1 K/mm3 (0-0.3); Eosinophils Percent Auto 0.9 % (0-4.4); Hematocrit 34.8 % (37.0-47.0); Hemoglobin 11.8 g/dL (12.0-15.0); Immature Granulocyte Absolute 0.06 K/mm3 (0.00-0.031); Immature Granulocyte Percent A 0.6 % (0-0.5); Lymphocytes Absolute Auto 1.59 K/mm3 (0.9-3.2); Lymphocytes Percent Auto 15.8 % (18.3-44.2); Mean Corpuscular HGB Conc 33.9 g/dl (32-36); Mean Corpuscular Hemoglobin 32.7 pg (26-34); Mean Corpuscular Volume 96.4 fl (80-100); Mean Platelet Volume 9.7 fl (7.4-10.4); Monocytes Absolute Auto 0.8 K/mm3 (0.1-0.6); Monocytes Percent Auto 7.9 % (2.6-8.5); Neutrophils Absolute Auto 7.5 K/mm3 (1.3-6.7); Neutrophils Percent Auto 74.5 % (45.5-73.1); Platelet Count Result 267 k/mm3 (150-375); Red Blood Count 3.61 M/mm3 (4.2-5.4); Red Cell Distribution Width 14.2 % (11.5-14.5); White Blood Count 10.1 K/mm3 (4.5-10.0)
--- NOTE | 2023-06-23 17:56 | LDADM ---
This patient, Cheri Watters, was admitted to Labor/Delivery/Recovery 106 on 06/23/23 at 17:00. Plans for labor, pain management and were discussed with patient. Patient/family oriented to hospital policies and general routines including ID bracelet, bed and alarms, visiting hours, pain management, procedures, bathroom and other care routines, personal items, smoking policy, room service/diet and guest tray routines, security routines, and visiting hours. Patient/Family are encouraged to report perceived risks to care and to ask questions if they do not understand what they are told or what they should do. See [facility] for further documentation.
[2023-06-23 19:06] LABS: Rubella IgG Antibody 9.1 IU/ML
[2023-06-24] VITALS (88 sets, daily range): BP systolic 104–157; BP diastolic 60–125; PULSE 56–197; RESP 16–20; TEMP 36.6–37.2; O2SAT 86–100
[2023-06-24] MEDS: ONDANSETRON INJ 4 MG/2 ML VIAL IV PUSH (02:13)
[2023-06-24] MEDS: LACTATED RINGERS 1,000 ML 125 ML IV CONT (03:35)
--- NOTE | 2023-06-24 05:31 | PM.IMHP ---
H&P: HPI History of Present Illness Date/Time: 06/24/23 05:31 Chief Complaint: Induction Narrative: 33 y/o G2 at 39 weeks admitted initially for IOL. On admission she was irvin and had cervical change and was admitted with plan for expectant management. She continued to progress in labor. PNC significant for LGA fetus and history of hemorrhage. She has had normal surveillance. Labs reviewed. GBS neg. Review of Systems Review of Systems: All systems reviewed & are unremarkable except as noted in HPI and below Constitutional: Constitutional: Reports no additional constitutional complaints and Denies headache(s) Eyes: Eyes: Denies spots in vision ENT: Reports system reviewed and no additional complaints, except as documented and Denies headache(s) Cardiovascular: Cardiovascular: Denies chest pain and Denies dyspnea Respiratory: Respiratory: Denies dyspnea Gastrointestinal: Gastrointestinal: Reports no additional gastrointestinal complaints Genitourinary: Genitourinary: Reports amenorrhea Musculoskeletal: Musculoskeletal: Reports no additional musculoskeletal complaints Integumentary/Breasts: Skin/Breast: Denies breast mass and Denies rash Neurologic: Denies headache(s) Psychiatric: Psychiatric: Reports no additional psychiatric complaints [facility] Past Medical History Medical History Headache Morbid obesity Obesity, unspecified Surgical History Surgical History H/O elbow surgery History of dilation and curettage x 2 hemorrhage Family History Family History Father Diabetes mellitus Hypertension Melanoma Sibling Family history of malignant melanoma Sibling Melanoma Grandparent Acute leukemia Heart disease Mother No problems noted. Social History Social History Smoking status: Never smoker Second hand tobacco smoke exposure: No Alcohol intake: former Alcohol use details: Not since Substance use: never Substance use type: does not use Lack of Transportation: No Lack of Food: Never True Current Housing: I Have Housing Concerned About Future Housing: No Difficulty Paying Gas/Electric Bills: No Difficulty Paying for Meds: No Currently Unemployed: No Education: Associate Degree Difficulty w/ Childcare or Family Care: No Living arrangements: with family Occupation/Education: occupation Additional occupation/education comments: [employer] Gender identity (if verbalized by the patient): Female Sexual Orientation (if Verbalized by the Patient): Straight or Heterosexual Spiritual care concerns: No Meds Home Medications and Allergies Home Medications Medication Instructions Recorded Confirmed Type prenat.vits,teddy,iok-fjkg-ebypt 1 tablet PO DAILY 10/21/22 06/23/23 History ferrous sulfate 325 mg (65 mg 325 mg PO DAILY 05/20/23 06/23/23 History iron) tablet valacyclovir 1 gram tablet 1,000 mg PO .PRN #20 tabs 06/22/23 06/23/23 Rx Allergies Allergy/AdvReac Type Severity Reaction Status Date / Time morphine Allergy Intermediate HIVES,ITCHI Verified 06/23/23 17:49 NG Vital Signs Vital Signs - 24 hr 06/23/23 17:19 06/23/23 22:32 06/23/23 22:34 Temperature Pulse Rate 88 89 Blood Pressure 139/77 151/114 H Pulse Oximetry 100 100 Oxygen Delivery 06/23/23 22:35 06/23/23 22:38 06/23/23 22:40 Temperature Pulse Rate 98 104 H Blood Pressure 164/131 H 143/89 H Pulse Oximetry 99 100 Oxygen Delivery 06/23/23 22:41 06/23/23 22:43 06/23/23 22:45 Temperature Pulse Rate 102 H 90 Blood Pressure 140/88 127/112 H Pulse Oximetry 100 Oxygen Delivery 06/23/23 22:46 06/23/23 22:48 06/23/23 22:50 Temperature Pulse Rate 86 83 Blood P
--- NOTE | 2023-06-24 05:38 | PM.OBPNVD ---
OB - PN: Subj Subjective Date/time seen: 06/24/23 05:38 Interval history: fht 130 Cat 2. AROM clear. C/C/0. OB - PN: Obj Data Labs 06/23/23 17:20 Labs: Laboratory Results - last 24 hr 06/23/23 17:20 WBC 10.1 H RBC 3.61 L Hgb 11.8 L Hct 34.8 L MCV 96.4 MCH 32.7 MCHC 33.9 RDW 14.2 Plt Count 267 MPV 9.7 Immature Gran % (Auto) 0.6 H Neut % (Auto) 74.5 H Lymph % (Auto) 15.8 L [place] % (Auto) 7.9 Eos % (Auto) 0.9 Baso % (Auto) 0.3 Lymph # (Auto) 1.59 [place] # (Auto) 0.8 H Eos # (Auto) 0.1 Baso # (Auto) 0.0 Abs Immat Gran (auto) 0.06 H Absolute Neuts (auto) 7.5 H Absolute Nucleated RBC 0.0 Nucleated RBC % 0.0 Rubella IgG Antibody 9.1 L Blood Type O Positive Antibody Screen Negative OB - PN A/P Time Spent With Patient Time: Total time spent is greater than 50% in coordination of care (as documented) at patient's floor/unit and/or counseling patient:
[2023-06-24] MEDS: OXYTOCIN 30 UNITS/NS 500 ML 30 UNITS/500 ML BAG 125 UNITS IV CONT (08:00)
--- NOTE | 2023-06-24 08:01 | PM.OBPRVD ---
OB - Vaginal Delivery Note Procedure Delivery date: 06/24/23 Events: Macrosomia Delivery augmentation: Rupture of Membranes and Pitocin Delivery monitor: External FHT and Internal Uterine Episiotomy description: None Laceration Description: Perineal - 1st Degree Specimen: Yes (3.0 vicryl) Quantitative Blood Loss (ml): 150 Anesthesia type: Epidural Disposition: Floor Complications: No immediate complications Baby Date of : 06/24/23 Time of : 07:37 Weeks of gestation at delivery: 39 Infant gender: Female Weight (pounds): 9 Weight (ounces): 13 presentation: vertex position: Right Occiput Anterior Placenta delivery description: Spontaneous Cord Vessel Description: 3 Vessels, Nuchal Cord, Loose, Reduced (manually) and Delayed Cord Clamping score one minute: 8 score five minutes: 9 Narrative: She was admitted in early labor. She did receive pitocin augmentation. She dilated to complete. Had AROM clear fluid at that time. She pushed for approximately 2 hours showing progressive descent and delivered a female . Nose and mouth suctioned at perineum. Loose nuchal cord manually reduced. With gentle traction the anterior shoulder was delivered and the was delivered and placed on maternal abdomen. Infant was vigorously crying. She sustained a first degree perineal laceration repaired with 3.0 vicryl. AMG Delivery Billing Delivery Delivery: Delivery Charge
[2023-06-24] MEDS: IBUPROFEN 600 MG TABLET PO ×2 (11:35→19:00)
--- NOTE | 2023-06-24 11:53 | OBPPTRN ---
1050-Patient transferred to post room #284 via wheelchair. Support person present. Oriented to unit, room, information board, rooming in, admission packet and security measures. Patient verbalizes understanding.
[2023-06-24 17:18] LABS: Rapid Plasma Reagin Non-Reactive (NonReactive)
[2023-06-25 00:30] VITALS: BP 110/55; PULSE 77; RESP 14; TEMP 36.8; O2SAT 98
[2023-06-25] MEDS: IBUPROFEN 600 MG TABLET PO ×3 (04:15→17:00)
[2023-06-25] MEDS: BENZOCAINE 20% AER SPR (*SP) 56 GM CAN 1 SPRAY TOPICAL (04:28)
[2023-06-25] MEDS: WITCH HAZEL 40 PADS 1 PAD TOPICAL (04:30)
[2023-06-25 04:31] VITALS: BP 119/79; PULSE 82; RESP 16; TEMP 36.9; O2SAT 99
[2023-06-25 05:21] LABS: Hematocrit 31.4 % (37.0-47.0); Hemoglobin 10.3 g/dL (12.0-15.0)
[2023-06-25 08:10] VITALS: BP 111/78; PULSE 87; RESP 16; TEMP 37.3; O2SAT 96
[2023-06-25] MEDS: DOCUSATE SODIUM 100 MG CAPSULE PO ×2 (11:40→17:00)
[2023-06-25] MEDS: MULTIVIT/MIN/PREN/FOL AC/IRON TABLET 1 TAB PO (11:40)
--- NOTE | 2023-06-25 13:43 | PC.NURSE ---
[id number] Introductions were made, then consulted with patient to assess needs related to . Discussed with mother her?plans to feed?her infant, the?experience so far and having a resource with PP CHANELLE Villarreal. We discussed how to protect her milk supply and the benefits of [id number]. Mother verbalizes she is able to independently latch infant with appropriate positioning, alignment and denies any nipple discomfort after having her night RN assist her with a deeper latch. Mother is encouraged to call for assistance if her infant doesn?t latch, pain with latching, questions or concerns. Resources provided for inpatient and outpatient services with the feeding sheet, mom/baby guide and name written on the communication board.
--- NOTE | 2023-06-25 13:47 | WPDANLDPN2 ---
Anes-Prog Note L&D Date/Time: 06/25/23 13:47 Neuro status: Neuro function grossly intact. Vital Signs: Last Vital Signs Temp 37.3 C 06/25/23 08:10 Pulse 87 06/25/23 08:10 Resp 16 06/25/23 08:10 BP 111/78 06/25/23 08:10 Pulse Ox 96 06/25/23 08:10 O2 Del Method Room Air 06/24/23 19:00 Pain score (VAS): 0 I/O: Intake & Output 06/24/23 06/25/23 06/25/23 23:59 07:59 15:59 Intake Total 300 Balance 300 Patient feedback: Patient satisfied with anesthetic care.
[2023-06-25 17:05] VITALS: BP 125/84; PULSE 74; RESP 14; TEMP 36.7; O2SAT 100
[2023-06-25 23:45] VITALS: BP 127/75; PULSE 73; RESP 15; TEMP 36.7; O2SAT 97
--- NOTE | 2023-06-26 08:29 | PM.OBPNVD ---
OB - PN: Subj Subjective Date/time seen: 06/25/23 1100 Pt in shower. OB - PN: Obj Data Labs 06/25/23 04:56 OB - PN A/P Time Spent With Patient Time: Total time spent is greater than 50% in coordination of care (as documented) at patient's floor/unit and/or counseling patient:
--- NOTE | 2023-06-26 08:30 | PM.OBPNVD ---
OB - PN: Subj Subjective Date/time seen: 06/26/23 08:30 Interval history: fht 130 Cat 2. AROM clear. C/C/0. Patient comments: pain well controlled, tolerating diet and other (Decreasing lochia.) baby status: doing well and nursing well OB - PN: Obj Data Labs 06/25/23 04:56 OB - PN A/P Assessment and Plan (1) Vaginal delivery: Code(s): O80 - Encounter for full-term uncomplicated delivery Status: Acute Plan day: 2 Plan: discharge home and other Comments: Patient doing well. Follow up 4-6 weeks. Discharge instructions provided. Time Spent With Patient Time: Total time spent is greater than 50% in coordination of care (as documented) at patient's floor/unit and/or counseling patient: Time with patient: less than 15 minutes Exam Psych: Affect: normal affect Other: Abd: fundus firm below umbilicus, nontender Perineum: healing Ext: nontender
[2023-06-26 09:11] VITALS: BP 115/66; PULSE 72; RESP 20; TEMP 36.7; O2SAT 99
[2023-06-26] MEDS: DOCUSATE SODIUM 100 MG CAPSULE PO (09:48)
[2023-06-26] MEDS: MULTIVIT/MIN/PREN/FOL AC/IRON TABLET 1 TAB PO (09:48)
[2023-06-26] MEDS: IBUPROFEN 600 MG TABLET PO (09:48)
[2023-06-26] MEDS: MEASLES,MUMPS,RUBELLA VACCINE 0.5 ML VIAL SUB-Q (09:49)
--- NOTE | 2023-06-26 11:05 | PC.NURSE ---
Patient viewed the discharge video Mother & Baby Care, The First Two Weeks . Patient was given the opportunity and encouraged to ask questions. Patient verbalized understanding of information shared and has been given the mother/baby guide for home reference.
[2023-06-27 11:23] VITALS: BP 125/76; PULSE 82; RESP 18; TEMP 36.6; O2SAT 98
--- NOTE | 2023-06-29 12:12 | PM.OBDSVD ---
DS: Admitting Diagnosis Discharge Date 06/26/23 Admitting Diagnosis Labor DS: Discharge Diagnosis Discharge Diagnosis (1) Vaginal delivery: Code(s): O80 - Encounter for full-term uncomplicated delivery Status: Acute OB - DS: Summary Hospital Course Hospital Course: She presented to L and D for MIL but was noted to be in early labor. She continued to contract spontaneously and progressed to labor and had pitocin augmentation. She had an uncomplicated vaginal delivery. She did well . She had adequate pain control. Lochia normal. Baby did well. She was discharged to home on day 2. OB Procedures : Ultrasound OB Procedures Intrapartum: Spontaneous Vag Delivery OB Procedures: : None Peripartum Data Infant Delivery Method: Natural Vaginal Laceration Description: Perineal - 1st Degree Episiotomy description: None complications: none Status at Discharge Functional status at discharge: independent ambulation Time Spent with Patient Time attestation: Total time spent providing and/or coordinating discharge services: Exam Const: General: cooperative Orientation/consciousness: oriented to person, oriented to place and oriented to time HENMT: Face/Nose/Sinus: Normal external nose present Eyes: General: appearance normal, both eyes and all related structures Resp: Effort & Inspection: normal respiratory effort GI: Inspection: normal to inspection Skin: General skin exam: normal color Neuro: General: oriented to person, oriented to place and oriented to time Extrem: General: normal to inspection and no calf tenderness Psych: Appearance: grossly normal Mental Status: mental status grossly normal Discharge Plan Discharge Attending physician on discharge: Vlad Bui Consulting providers: Sheryl Ramachandran; Liz Cervantes Discharging Clinician: Vlad Bui Anticipated Discharge Date/Time: 06/26/23 08:22 Patient Disposition: Home, Self-Care Activity: may shower and pelvic rest Diet: regular Discharge Instructions: Education: Mom and Baby Guide Given to: Mother Follow-Up: Call your delivering provider's office for an appointment to be seen in: 4 Weeks [facility]. Appointment Date/Time: June 27, 2023 at 11:00 am What to expect at your follow-up visit: Physical Assessment Call [phone] if you are unable to keep your appointment time. BREAST CARE: * Wear a snug supportive bra. * For engorgement discomfort: Breast Feeding: * Apply warm moist washcloths * Express milk as needed to relieve engorgement * Wear loose clothing * For sore nipples: * Identify correct latch-on * Apply warm moist washcloths before and after nursing * Air dry nipples after nursing * May apply Lansinoh cream to nipples EPISIOTOMY/PERINEAL CARE: * Until bleeding stops, use your pierre bottle after urinating * Change your pad frequently throughout the day * You may take sitz baths several times a day (fill your bathtub with warm water and soak for 20 minutes.) Do NOT bathe in the water * No tub baths until seen by your physician - You may shower ACTIVITY: * Rest as much as possible. * Do not exercise or lift anything heavier than your baby (such as laundry or other children.) * Avoid stairs or driving as much as possible. * Do not put anything into the vagina. No douching, tampons, or sexual activity until seen by physician. NOTIFY PHYSICIAN IF YOU HAVE ANY QUESTIONS OR IF ANY OF THE FOLLOWING SYMPTOMS OCCUR: * If your episiotomy or incision becomes red, swollen, or more painful than what you have experienced in the hospital. * If your vaginal bleeding becomes foul smelling. * If your vaginal bleeding becomes more heavy than a period or if your bleeding changes from pink to
== END 2023-06-26 11:55 | disposition home or self-care (01) | DRG 807 ==
LOC: ANHLDR 17:03 → ANHOB2 06-24 10:57
PROVIDERS: Admitting Provider Obstetrics & Gynecology; PCP Family Medicine; Visit Provider Obstetrics & Gynecology
DX: O36.63X0 Maternal care for excessive fetal growth, third trimester, not applicable or unspecified (principal); Z37.0 Single live birth; O69.81X0 Labor and delivery complicated by cord around neck, without compression, not applicable or unspecified; Z3A.39 39 weeks gestation of pregnancy; O70.0 First degree perineal laceration during delivery
CPT/HCPCS: 36415; 85014; 85018; 85025; 86592; 86762; 86850; 86900; 86901; 90710; A9270; J2405; J2590; J2795; J7120

== ENCOUNTER 2023-08-14 08:04 | Outpatient (CLI) | payer OTHER, SELFPAY ==
--- NOTE | ~2023-08-14 | US_ITS ---
EXAMINATION: US breast RT limited HISTORY: Palpable lump in the upper outer quadrant of the right breast. TECHNIQUE: Limited right breast ultrasound was performed. FINDINGS: There is a benign-appearing lymph node at the 10:00 location, 12 cm from the nipple in the right breast corresponding to the palpable abnormality of concern. No suspicious cystic or solid mass is identified. IMPRESSION: Intramammary lymph node of the right breast corresponding to the palpable abnormality of concern. BI-RADS Category 2: Benign finding(s). Reviewed, dictated and finalized at location A. ESSOR OF RELIGION IMPRESSION: Intramammary lymph node of the right breast corresponding to the palpable abnor mality of concern. BI-RADS Category 2: Benign finding(s).
== END 2023-08-14 08:05 | disposition home or self-care (01) ==
LOC: CHSIMG 08:05
PROVIDERS: PCP Family Medicine; Visit Provider Obstetrics & Gynecology
DX: R59.0 Localized enlarged lymph nodes (principal); R92.2 Inconclusive mammogram
CPT/HCPCS: 76641; 76642

== ENCOUNTER 2024-03-03 14:46 | Outpatient (CLI) | payer OTHER, SELFPAY ==
--- NOTE | ~2024-03-03 | XR_ITS ---
XR chest 2V 03/03/2024 15:00 Indication: Chronic cough after ingesting a bug 2 weeks prior. Right-sided chest pain and wheezing Procedure: 2 view chest Comparison: 05/04/2013 Findings: Subsegmental atelectasis right lung base. Heart size normal. No focal pneumonia, edema, ple ural effusion or pneumothorax. No acute osseous abnormality. No foreign bodies identified Impression: 1: Subsegmental atelectasis right lung base. Reviewed, dictated and finalized at location B. Impression: 1: Subsegmental atelectasis right lung base.
== END 2024-03-03 14:47 | disposition home or self-care (01) ==
LOC: CHSIMG 14:48
PROVIDERS: PCP Family Medicine; Visit Provider Family Medicine
DX: R05.3 Chronic cough (principal); J98.11 Atelectasis
CPT/HCPCS: 71046

== ENCOUNTER 2024-03-04 10:10 | Outpatient (CLI) | payer OTHER, SELFPAY ==
[2024-03-04 11:56] LABS: Free T4 Free Thyroxine Reflex 0.37 ng/dL (0.76-1.46)
== END 2024-03-04 10:11 | disposition home or self-care (01) ==
LOC: CHSLAB 10:13
PROVIDERS: PCP Family Medicine; Visit Provider Family Medicine
DX: Z00.00 Encounter for general adult medical examination without abnormal findings (principal); E03.9 Hypothyroidism, unspecified
CPT/HCPCS: 36415; 84439; 84443

== ENCOUNTER 2024-06-02 12:52 | Outpatient (CLI) | payer OTHER, SELFPAY ==
[2024-06-02 13:23] LABS: Basophils Absolute Auto 0.05 K/mm3 (0.00-0.10); Basophils Percent Auto 0.7 % (0.0-1.0); Eosinophils Absolute Auto 0.19 K/mm3 (0.02-0.50); Eosinophils Percent Auto 2.8 % (1.0-6.0); Hematocrit 38.6 % (35.0-49.0); Hemoglobin 13.5 g/dL (12.0-15.0); Immature Granulocyte Absolute 0.03 K/mm3 (0.00-0.00); Immature Granulocyte Percent A 0.4 % (0.0-0.0); Lymphocytes Absolute Auto 2.07 K/mm3 (1.10-4.50); Lymphocytes Percent Auto 30.4 % (18.0-42.0); Mean Corpuscular Hemoglobin 32.5 pg (27.0-31.0); Monocytes Absolute Auto 0.47 K/mm3 (0.10-0.90); Monocytes Percent Auto 6.9 % (2.0-11.0); Neutrophils Absolute Auto 3.99 K/mm3 (1.70-7.20); Neutrophils Percent Auto 58.8 % (50.0-70.0); Platelet Count Result 439 K/mm3 (150-420); Red Blood Count 4.15 M/mm3 (4.20-5.40); Red Cell Distribution Width 12.8 % (11.6-14.4); White Blood Count 6.8 K/mm3 (4.8-10.8)
[2024-06-02 13:34] LABS: Alanine Aminotransferase 15 U/L (14-59); Albumin Level 3.7 g/dL (3.4-5.0); Alkaline Phosphatase 83 U/L (46-116); Anion Gap 10 mmol/L (4-12); Aspartate Amino Transferase 14 U/L (15-37); Bilirubin,Total 0.5 mg/dL (0.00-1.00); Blood Urea Nitrogen 17 mg/dL (7-18); Calcium 9.3 mg/dL (8.5-10.1); Carbon Dioxide 27 mmol/L (21-32); Chloride 101 mmol/L (98-108); Estimated Glomerular Filt Rate > 60; Glucose 78 mg/dL (70-99); Osmolality Calculated 286 mOsm/kg (285-295); Potassium 3.7 mmol/L (3.5-5.1); Sodium 138 mmol/L (136-145); Total Protein 7.9 g/dL (6.4-8.2)
[2024-06-02 13:36] LABS: Hemoglobin A1C 4.9 % (<5.7)
[2024-06-02 14:14] LABS: Thyroid Stimulating Hormone Reflex 5.28 u/IU/mL (0.36-3.74)
[2024-06-02 14:49] LABS: Free T4 Free Thyroxine Reflex 0.87 ng/dL (0.76-1.46)
== END 2024-06-02 12:53 | disposition home or self-care (01) ==
PROVIDERS: PCP Family Medicine; Visit Provider Family Medicine
DX: E03.9 Hypothyroidism, unspecified (principal); E11.9 Type 2 diabetes mellitus without complications; E66.01 Morbid (severe) obesity due to excess calories; Z00.00 Encounter for general adult medical examination without abnormal findings
CPT/HCPCS: 36415; 80053; 83036; 84439; 84443; 85025

== ENCOUNTER 2024-06-07 06:52 | Outpatient (CLI) | payer OTHER, SELFPAY ==
[2024-06-07 07:47] LABS: Cholesterol 157 mg/dL (0-200); HDL Direct 48 mg/dL (40-60); LDL Cholesterol Calculated 84 mg/dL (<130); Triglycerides 123 mg/dL (0-150)
== END 2024-06-07 06:53 | disposition home or self-care (01) ==
PROVIDERS: PCP Family Medicine; Visit Provider Family Medicine
DX: Z00.00 Encounter for general adult medical examination without abnormal findings (principal)
CPT/HCPCS: 36415; 80061

== ENCOUNTER 2024-09-02 08:30 | Outpatient (CLI) | payer OTHER, SELFPAY ==
--- NOTE | ~2024-09-02 | MMUS_ITS ---
EXAMINATION: MM diagnostic ariana BI w brianna, US breast RT limited HISTORY: Mastodynia TECHNIQUE: Additional 3-D tomosynthesis images of the breasts were performed and synthetic 2-D images were generated. CAD analysis was submitted and interpreted. High resolution Limited right breast ult rasound was performed. COMPARISON: 08/14/2023 BREAST PARENCHYMAL COMPOSITION: Not dense: There are scattered areas of fibroglandular density. FINDINGS: MAMMOGRAPHIC FINDINGS: There is a mass in the upper outer quadrant of the right breast corresponding to the area palpable co ncern. This mass contains central low density, most compatible with intramammary lymph node. No suspi cious calcifications or architectural distortion. No mammographic evidence for malignancy in the left breast. ULTRASOUND: Limited right breast ultrasound: Decreased size of benign-appearing intramammary lymph node at 10:00, 10 cm from the nipple measuring 1 cm compared with 1.4 cm on prior examination. No other masses are identified.. IMPRESSION: 1. No evidence for malignancy in either breast. Benign finding. 2. Routine yearly screening mammogram and regular clinical breast examination are recommended. BI-RADS Category 2: Benign finding(s). Reviewed, dictated and finalized at location B. RVISORY GEOGRAPHER IMPRESSION: 1. No evidence for malignancy in either breast. Benign finding. 2. Routine yearly screening mammogram and regular clinical breast examination a re recommended. BI-RADS Category 2: Benign finding(s).
--- OUTSIDE RECORDS SUMMARY | 2024-09-02 08:38 | XMS_ITS | Clinical Summary ---
Author Organization [facility] Address [address] [place] [address] Phone Care Team Providers Care Sales Representative Advertising Name Role Phone Unavailable Primary Care Provider Unavailabl e Social History Tobacco Use Types Packs/Day Years Used Date Smoking Tobacco: Never Assessed Comments Unknown Sex and Gender Information Value Date Recorded Sex Assigned at Not on file Legal Sex Female 4:33 PM CDT Gender Identity Not on file Sexual Orientation Not on file Plan of Treatment Health Maintenance Due Date Last Done Comments DTAP/TDAP/TD VACCINES (1 - Tdap) 2010 HEPATITIS B VACCINES (1 of 3 - 19+ 3-dose series) 2010 CERVICAL CANCER SCREENING 2021 INFLUENZA VACCINE (#1) 2024 HPV VACCINES Aged Out No longer eligi ble based on patient's age to complete this topic PNEUMOCOCCAL VACCINE 0-64 YEARS Aged Out No longer eligible based on patient's age to complete this topic Insurance [facility] CHOICE [id number]
== END 2024-09-02 08:31 | disposition home or self-care (01) ==
LOC: CHSIMG 08:32
PROVIDERS: PCP Family Medicine; Visit Provider Obstetrics & Gynecology
DX: N64.4 Mastodynia (principal)
CPT/HCPCS: 76642; 77062; 77066; G0279

== ENCOUNTER 2024-09-30 15:04 | Outpatient (CLI) | payer OTHER, SELFPAY ==
--- OUTSIDE RECORDS SUMMARY | 2024-09-30 15:08 | XMS_ITS | Clinical Summary ---
Author Organization [facility] Address [address] [place] [address] Phone Care Team Providers Care Pig Machine Operator Name Role Phone Unavailable Primary Care Provider [...] age to complete this topic PNEUMOCOCCAL VACCINE 0-49 YEARS Aged Out No longer eligible based on patient's age to complete this topic Insurance [facility] CHOICE [id number]
== END 2024-09-30 15:05 | disposition home or self-care (01) ==
PROVIDERS: PCP Family Medicine; Visit Provider Family Medicine
DX: E03.9 Hypothyroidism, unspecified (principal)
CPT/HCPCS: 36415; 84443